=== PATIENT | male | born 1935 | race Caucasian/White ===

== ENCOUNTER 2019-05-18 10:27 | Emergency (ER) | payer MEDICARE, OTHER ==
--- NOTE | 2019-05-18 10:53 | ED Physician Documentation ---
Upper Respiratory Symptoms - HISTORIAN Historian: patient - HPI Stated Complaint: cough x 1.5 weeks Chief Complaint: Cough/ Upper Respiratory Onset: days ago (1.5 weeks ) Duration: intermittent episodes Context: denies: recent foreign travel, insect bite(s), tick(s), recent chemotherapy Severity: mild Associated Symptoms: sore throat (initally not now ), productive cough (occasionally ). denies: fever, chills, sweating, earache, runny nose, sinus pain, sinus drainage, hoarseness, allergy, chest pain, bloody cough, shortness o f breath, hurts to breathe, headache Worsened by Deep Breath: No Further Comments: yes (He states that 1.5 weeks ago he started with a sore throat and cough. He states he is coughing now with exercise and change in temp (like when he went outside today) he is scared this will turn into pneumonia. He has an occasional productive cough. No fever. He is not taking any OTC Meds.) - ROS CONST/EYES: denies: weakness, eye redness CVS/RESP: none LYMPH: denies: leg swelling, rash GI/: none NEURO/PSYCH: denies: fainting, dizziness - PAST HX Lung Disease: other (HTN ) PE Risk Factors: hypertension Surgeries/Procedures: none Immunizations: UTD Allergies/Adverse Reactions: Allergies Allergy/AdvReac Type Severity Reaction Status Date / Time IV Dye Allergy Uncoded 03/20/18 13:29 Home Medications: Ambulatory Orders Medication Instructions Recorded Blood Pressure Meds 03/20/18 - SOCIAL HX Smoking History: non-smoker Drug Use: none - FAMILY HX Family History: none - VITAL SIGNS Vital Signs: Vital Signs Temp Pulse Resp BP Pulse Ox 150/68 03/20/18 14:45 - REVIEWED ASSESSMENTS Nursing Assessment Reviewed: Yes Vitals Reviewed: Yes Upper Respiratory Symptoms - EXAM General Appearance: no acute distress, alert EENT: eyes nml inspection, nml ENT inspection, lids & conjunct. nml, PERRL, ear nml Neck: normal inspection Respiratory: no resp. distress, breath sounds nml, no pain on inspiration, speaks full sentences Abdomen: non-tender CVS: reg rate & rhythm, heart sounds normal Skin: color nml, no rash, warm,dry Extremities: non-tender, no edema Neuro/Psych: oriented x3 Discharge Clincal Impression: URI (upper respiratory infection) Qualifiers: URI type: unspecified URI Qualified Code(s): J06.9 - Acute upper respiratory infection, unspecified Referrals: Primary Doctor,No [Primary Care Provider] - 2 Days Comments: 1. OTC meds as directed as needed for symptom relief 2. Tessalon Pearls 100 mg take 1 by mouth every 8 hours as needed for cough 3. Follow up with PCP in 2-4 days if no improvement 4. Return to ER for any increased concerns Condition: Stable Disposition: 01 HOME, SELF-CARE Decision to Admit: NO Date of Decison to Admit: 05/18/19 Decision Time: 10:57
[2019-05-18 10:54] VITALS: BP 113/62
== END 2019-05-18 10:59 | disposition home or self-care (01) ==
LOC: ED 10:27
DX: J06.9 Acute upper respiratory infection, unspecified (principal)
CPT/HCPCS: 99282; 99284